=== PATIENT | male | born 1950 ===

== ENCOUNTER → 2022-06-17 | Outpatient (CLI) | payer MEDICARE ==
[2022-06-17 13:03] LABS: BILIRUBIN,URINE NEGATIVE (NEGATIVE); UROBILINOGEN,URINE 0.2 E.U./dL (0.2)
== END | disposition home or self-care (01) ==
LOC: NPLAB 11:46
PROVIDERS: ATTEND Internal Medicine
DX: N39.0 Urinary tract infection, site not specified (principal)
CPT/HCPCS: 81001; 87086